=== PATIENT | female | born 1955 ===

== ENCOUNTER → 2025-03-26 11:16 | Outpatient (REF) | payer MEDICARE, SELFPAY ==
[2025-03-26 13:19] LABS: Hematocrit 42.6 % (37.0-47.0); Hemoglobin 14.0 g/dL (12.0-16.0); Mean Corp Hgb Conc. 32.9 g/dL (33.0-37.0); Mean Corpuscular Volume 95.7 fL (81.0-99.0); Nucleated Red Blood Cells % 0 %; Platelet Count 256 10^3/uL (130-400); Red Cell Dist. Width 12.9 % (11.5-14.5)
[2025-03-26 13:49] LABS: Glycohemoglobin (HgbA1c) 5.7 % (4.0-5.9)
[2025-03-26 14:14] LABS: Blood Urea Nitrogen 16 mg/dl (7-17); Calcium 10.2 mg/dl (8.4-10.2); Carbon Dioxide 27 mmol/L (22-30); Chloride 104 mmol/L (98-107); Glucose 98 mg/dl (70-99); HDL Cholesterol 98 mg/dl; LDL Cholesterol, Calculated 99 mg/dl; Magnesium 2.0 mg/dl (1.6-2.3); Potassium 4.3 mmol/L (3.5-5.1); Sodium 139 mmol/L (135-145); Very Low Density Lipoprotein 13 mg/dl (0-30); eGFR > 60.00
[2025-03-26 14:22] LABS: Vitamin D, 25-OH*** 48.2 ng/mL (30-80)
[2025-03-26 14:35] LABS: TSH 1.99 uIU/ml (0.47-4.68)
[2025-03-26 14:55] LABS: Vitamin B12 850 pg/ml (239-931)
== END ==
LOC: OLABSOL 11:16
PROVIDERS: ATTENDING PHYSICIAN Nurse Practitioner Adult Health
DX: E55.9 Vitamin D deficiency, unspecified (principal); E11.9 Type 2 diabetes mellitus without complications; R73.09 Other abnormal glucose; D51.9 Vitamin B12 deficiency anemia, unspecified; E11.65 Type 2 diabetes mellitus with hyperglycemia; D64.9 Anemia, unspecified; R79.89 Other specified abnormal findings of blood chemistry
CPT/HCPCS: 36415; 80048; 80061; 82306; 82607; 83036; 83735; 84439; 84443; 85025

== ENCOUNTER → 2025-04-08 07:32 | Outpatient (REF) | payer MEDICARE, SELFPAY ==
[2025-04-08 17:53] LABS: Urine Character Clear (Clear)
[2025-04-08 18:10] LABS: Urine Red Blood Cell 0-2 /HPF (0-2); Urine Squamous Cell >30 /LPF (Few)
== END ==
LOC: OLABSOL 07:32
PROVIDERS: ATTENDING PHYSICIAN Nurse Practitioner Adult Health
DX: N39.0 Urinary tract infection, site not specified (principal)
CPT/HCPCS: 81003; 81015; 87086